=== PATIENT | male | born 1995 | race Hispanic/Latino ===

== ENCOUNTER 2022-07-06 10:28 | Emergency (ER) | payer SELFPAY ==
[~2022-07-06 10:28] MED LIST: Iopamidol 300 61% 100 ML VIAL FS ONE
[2022-07-06 11:28] LABS: #Basophils 0.1 10x3/uL (0.0-0.2); #Neutrophils 4.8 10x3/uL (1.5-8.4); %Basophils 0.7 % (0.0-2.0); %Eosinophils 0.1 % (0.0-6.0); %Lymphocytes 26.7 % (18.0-47.0); %Neutrophils 60.3 % (40.0-75.0); Hemoglobin 9.6 g/dL (13.5-17.5); Mean Corpuscular HGB CONC 34.3 g/dL (32.0-36.0); Mean Corpuscular Hemoglobin 29.2 pg (27.0-33.0); Mean Corpuscular Volume 85.1 fl (81.2-95.1); Mean Platelet Volume 10.3 fl (7.4-10.4); Platelet Count 315 10x3/uL (150-450); Red Blood Cell (RBC) Count 3.29 10x6/uL (4.32-5.72)
[2022-07-06 11:41] LABS: ALT (SGPT) 26 U/L (8-55); AST (SGOT) 22 U/L (5-34); Albumin 3.9 g/dL (3.5-5.0); Alkaline Phosphatase 102 U/L (40-110); Anion Gap 14 mmol/L (10-20); BUN (Urea Nitrogen) 9 mg/dL (8.9-20.6); Bilirubin, Total 1.2 mg/dL (0.2-1.2); Calc. Creatinine Clearance 0 mL/min (70-130); Calcium 9.3 mg/dL (7.8-10.44); Carbon Dioxide 22 mmol/L (22-29); Chloride 102 mmol/L (98-107); Estimated GFR 105; Globulin 4.2 g/dL (2.4-3.5); Glucose 103 mg/dL (70-105); Lipase 12 U/L (8-78); Potassium 4.3 mmol/L (3.5-5.1); Protein, Total 8.1 g/dL (6.0-8.3); Sodium 134 mmol/L (136-145)
[2022-07-06 12:09] LABS: SARS-CoV-2 NAA Rapid Test Not Detected (NotDetected)
[2022-07-06] MEDS ORDERED: Ketorolac Tromethamine 30 MG/ML VIAL ONE (13:42)
[2022-07-06] MEDS ORDERED: Ondansetron PF 4 MG/2 ML Vial ONE (13:43)
[2022-07-06] MEDS ORDERED: Acetaminophen 500 MG TAB ONE (14:07)
[2022-07-06 14:19] LABS: HIV (1/2) Antibody/Antigen Non-Reactive (NonReactive); HIV 1/2 INDEX 0.07 S/CO (<1.00)
[2022-07-06 15:52] LABS: Bilirubin Neg (Negative); Blood, Urine 10 (Negative); Clarity Clear (Clear); Glucose, Urine (Dipstick) Normal (Negative); Ketone, Urine 15 mg/dL (Negative); Leukocyte Negative (Negative); Nitrite Negative (Negative); Protein, Urine (Dipstick) 30 mg/dl (Neg-Trace)
[2022-07-06] MEDS ORDERED: cefTRIAXone\\ROCEPHIN 500 MG VIAL ONE (16:06)
[2022-07-06] MEDS ORDERED: Lidocaine 1% (PF) 30 ML VIAL ONE (16:14)
[2022-07-06] MEDS ORDERED: Doxycycline 100 MG CAP PO SCH (16:15)
[2022-07-06 16:28] LABS: Bacteria/HPF 2+ HPF (None Seen); RBC/HPF 0-3 HPF (0-3); Squamous Epithelial 0-3 HPF (0-3); WBC/HPF 0-3 HPF (0-3)
[2022-07-06 16:30] LABS: Mucous/LPF 3+ LPF (<2+)
[2022-07-07 10:37] LABS: Chlam.trachomatis by PCR,Urine Not Detected (NotDetected)
== END 2022-07-06 17:25 | disposition home or self-care (01) ==
LOC: CSHERS 10:28
DX: K62.89 Other specified diseases of anus and rectum (principal); E86.0 Dehydration; F17.210 Nicotine dependence, cigarettes, uncomplicated; Z20.822 Contact with and (suspected) exposure to COVID-19
CPT/HCPCS: 74177; 80053; 81003; 81015; 82274; 83605; 83690; 85025; 87086; 87389; 87491; 87591; 96361; 96372; 96374; 96375; J0696; J1885; J2001; J2405; Q9967